=== PATIENT | male | born 1950 | race Caucasian/White ===

== ENCOUNTER 2016-09-05 10:59 | Outpatient (CLI) | payer MEDICARE ==
[2016-09-05 11:29] LABS: Hemoglobin 10.7 g/dL (14.0-18.0); Mean Corpuscular HGB CONC 34.1 g/dL (32.0-36.0); Mean Corpuscular Hemoglobin 29.4 pg (27.0-31.0); Mean Corpuscular Volume 86.2 fl (80.0-94.0); Mean Platelet Volume 6.4 fL (7.4-10.4); Platelet Count 265 thou/uL (130-400); RBC Distribution Width 12.9 % (11.5-14.5); Red Blood Cell (RBC) Count 3.63 mill/uL (4.70-6.10); White Blood Cell (WBC) Count 6.8 thou/uL (4.8-10.8)
[2016-09-05 12:13] LABS: ALT (SGPT) 10 U/L (0-55); AST (SGOT) 13 U/L (5-34); Albumin 3.8 g/dL (3.4-4.8); Alkaline Phosphatase 135 U/L (40-150); BUN (Urea Nitrogen) 25 mg/dL (8.4-25.7); Bilirubin, Direct 0.2 mg/dL (0.1-0.3); Bilirubin, Total 0.4 mg/dL (0.2-1.2); Calc. Creatinine Clearance 0 mL/min (70-130); Estimated GFR-MDRD 80; Protein, Total 7.3 g/dL (5.8-8.1)
[2016-09-09 16:13] LABS: Anti-Striation AB Negative (Neg:<1:40); Antinuclear AB Positive (Negative); Complement C4 15 mg/dL (14-44); DSDNA AutoAb 1 IU/mL (0-9); SCL-70 IgG AutoAb <0.2 AI (0.0-0.9); Smith IgG AutoAb <0.2 AI (0.0-0.9); Smooth Muscle AB 8 Units (0-19); Thyroid Peroxidase Abs 11 IU/mL (0-34); U1 RNP/SNRNP IgG AutoAb 0.2 AI (0.0-0.9)
== END 2016-09-05 11:00 | disposition home or self-care (01) ==
LOC: MADLAB 10:59
PROVIDERS: ATTEND Physician Assistant Medical
DX: L93.0 Discoid lupus erythematosus (principal); M32.9 Systemic lupus erythematosus, unspecified
CPT/HCPCS: 36415; 80076; 82565; 83520; 84520; 85027; 86160; 86225; 86235; 86376; 86431

== ENCOUNTER 2019-10-13 17:17 | Emergency (ER) | payer MEDICARE ==
[2019-10-13] MEDS ORDERED: Oseltamivir 75 MG CAP ONE (18:18)
[2019-10-13] MEDS ORDERED: Phenergan/Codeine 10-6.25mg/5ml UDCUP ONE (18:18)
== END 2019-10-13 18:26 | disposition home or self-care (01) ==
LOC: MADERS 17:17
DX: J10.1 Influenza due to other identified influenza virus with other respiratory manifestations (principal); K21.9 Gastro-esophageal reflux disease without esophagitis; I10 Essential (primary) hypertension; Z79.82 Long term (current) use of aspirin; Z79.899 Other long term (current) drug therapy
CPT/HCPCS: 87804; 99283

== ENCOUNTER 2021-05-01 10:50 | Outpatient (CLI) | payer MEDICARE | END 2021-05-01 10:51 | disposition home or self-care (01) | LOC: MADLAB 10:50 → MADRAD 10:51 | PROVIDERS: ATTEND Internal Medicine Pulmonary Disease | DX: R06.00 Dyspnea, unspecified (principal); I50.9 Heart failure, unspecified | CPT/HCPCS: 71046 ==